=== PATIENT | male | born 2000 | race Hispanic/Latino ===

== ENCOUNTER 2018-12-23 00:16 | Emergency (ER) | payer MEDICAID, OTHER ==
[2018-12-23] MEDS ORDERED: IBUPROFEN 600 MG TABLET ONE (00:34)
[2018-12-23 00:49] LABS: RAPID GROUP A STREP NEGATIVE (NEGATIVE)
== END 2018-12-23 01:30 | disposition home or self-care (01) ==
LOC: EDH 00:16
DX: J02.0 Streptococcal pharyngitis (principal); J02.9 Acute pharyngitis, unspecified
CPT/HCPCS: 87804; 87880

== ENCOUNTER 2019-01-03 22:26 | Emergency (ER) | payer OTHER ==
[2019-01-03] MEDS ORDERED: LIDOCAINE HCL 2% VISCOUS 15 ML UDCUP ONE (23:17)
[2019-01-03] MEDS ORDERED: MAG HYDROX/AL HYDROX/SIMETH ES 30 ML SUSP UDCUP ONE (23:17)
== END 2019-01-03 23:44 | disposition home or self-care (01) ==
LOC: EDH 22:26
DX: K21.9 Gastro-esophageal reflux disease without esophagitis (principal); J45.909 Unspecified asthma, uncomplicated
CPT/HCPCS: 93005